=== PATIENT | female | born 2000 | race Caucasian/White ===

== ENCOUNTER 2021-02-22 01:27 | Emergency (ER) | payer OTHER ==
[~2021-02-22] VITALS: Ht 160 cm; Wt 85.3 kg
[2021-02-22] MEDS ORDERED: PRENATAL PO (02:18)
[2021-02-22 03:06] LABS: PLATELET COUNT 206 K/uL (152-353)
[2021-02-22 03:39] LABS: PARTIAL THROMBOPLASTIN TIME 24.1 SECONDS (24.5-33.6)
[2021-02-22 04:50] VITALS: BP 132/77; TEMP 98.4
== END 2021-02-22 04:50 | disposition home or self-care (01) ==
LOC: ED 01:27
PROVIDERS: Hospitalist
DX: K29.70 Gastritis, unspecified, without bleeding (principal); Z3A.35 35 weeks gestation of pregnancy
CPT/HCPCS: 36415; 80053; 80307; 81000; 84702; 85027; 85610; 85730; 96360; 96365; 96375; 99284; J0696; J2405